=== PATIENT | female | born 1980 | race Caucasian/White ===

== ENCOUNTER → 2018-11-16 | Outpatient (CLI) | payer OTHER ==
--- NOTE | 2018-11-16 10:01 | Diagnostic Imaging Report ---
Renal ultrasound, 11/16/2018. History: UTI, hematuria. Discussion: Transverse and longitudinal images of the kidneys were obtained demonstrating normal renal sizes and echogenicities. There is no evidence of hydronephrosis, mass, or renal calculus. The right kidney measures 11.1 cm and the left kidney measures 11.9 cm in length. Renal cortex measures 1.3 and 1.8 cm respectively. The urinary bladder is unremarkable. Bilateral ureteral jets are identified. Bladder volume measures 361 mL. There is no evidence of free fluid. IMPRESSION: Normal renal ultrasound. Signed by: Scott Kessler on 11/16/2018 9:58 AM
== END ==
LOC: US 08:51
PROVIDERS: ATTEND Urology
DX: R31.29 Other microscopic hematuria (principal); N39.0 Urinary tract infection, site not specified
CPT/HCPCS: 76770